=== PATIENT | male | born 1965 | race Caucasian/White ===

== ENCOUNTER 2017-02-12 12:40 | Emergency (ER) | payer SELFPAY ==
[~2017-02-12] VITALS: Ht 182.9 cm; Wt 76.9 kg
[2017-02-12 12:43] VITALS: BP 93/58; PULSE 90; TEMP 36.7; O2SAT 97; Ht 182.9 cm; Wt 76.9 kg
--- NOTE | 2017-02-12 19:25 | EMERGENCY ROOM VISIT NOTE ---
History Report prepared by Tam: Checo Herndon Under the Supervision of: Dr. Shan Garcia D.O. First contact with patient: 13:03 Chief Complaint: ANXIETY Stated Complaint: ANXIETY,CAN'T SLEEP,CAN'T FOCUS History of Present Illness The patient is a 51 year old male who presents to the Emergency Room with complaints of persistent anxiety for the past while. The patient states that he has a history of anxiety for the past ten years. He states that some things have come up in his life recently leading to this anxiety. The patient states that he takes 1mg alprazolam three times per day. The patient denies any suicidal ideation, homicidal ideation, and hallucinations. Pt denies headache, change in vision, fevers, chest pain, shortness of breath, nausea, vomiting, diarrhea, pain with urination, and melena. He notes that he has one prescription for benzodiazepines filled in [place] but since then has had none recently. He admits that he has trouble getting these due to being out of state and way from his PCP in [place]. Source of History: patient Onset: the past while Position: other (global) Quality: other (anxiety) Timing: other (persistent) Review of Systems See HPI for pertinent positives & negatives. A total of 10 systems reviewed and were otherwise negative. Past Medical & Surgical Medical Problems: (1) Anxiety Social History Smoking Status: Current Every Day Smoker Marital Status: single Housing Status: lives alone Occupation Status: employed Current/Historical Medications Unable to Obtain Active Prescriptions or Reported Meds Physical Exam Vital Signs Date Time Temp Pulse Resp B/P (MAP) Pulse Ox O2 Delivery O2 Flow Rate FiO2 02/12/17 12:43 36.7 90 18 93/58 97 Room Air Physical Exam GENERAL: Sitting up in bed, alert, well appearing, well nourished, no distress, non-toxic EYE EXAM: normal conjunctiva. OROPHARYNX: no exudate, no erythema, lips, buccal mucosa, and tongue normal and mucous membranes are moist NECK: supple, no nuchal rigidity, no adenopathy, non-tender LUNGS: Clear to auscultation. Normal chest wall mechanics HEART: no murmurs, S1 normal and S2 normal ABDOMEN: abdomen soft, non-tender, normo-active bowel sounds, no masses, no rebound or guarding. BACK: Back is symmetrical on inspection and there is no deformity, no midline tenderness, no CVA tenderness. SKIN: no rashes and no bruising UPPER EXTREMITIES: upper extremities are grossly normal. LOWER EXTREMITIES: No pitting edema. NEURO EXAM: Normal sensorium, cranial nerves II-XII grossly intact, normal speech, no gross weakness of arms, no gross weakness of legs. Gross sensation intact. PSYCH: Denies suicidal and homicidal ideations. Denies auditory and visual hallucinations. Medical Decision & Procedures Laboratory Results ED Course ED COURSE: Vital signs were reviewed and showed hypotension The patients medical record was reviewed The above diagnostic studies were performed and reviewed. ED treatments and interventions as stated above. 1303: The patient was evaluated in room A8. A complete history and physical examination was performed. I discussed my findings with the patient and he understands the treatment plan. Based on the patients age, coexisting illnesses, exam, and lab findings the decision to treat as an outpatient was made. The patient remained stable while under my care. The patient appeared well at the time of discharge. Medical Decision Differential diagnosis: Etiologies such as mood disorder, infection, hypoglycemia, electrolyte abnormalities, cardiac sources, intracerebral event, toxicologic, neurologic, as well as others were entertained. Patient is a 51-year-old male who presents to ER for anxiety and denies all other complaints. He notes that he has one Ativan prescription but none other. His exam is completely benign. [place] he had multiple prescriptions for benzodiazepines filled within the past month. These prescriptions are for coming from 5 different providers. They are 90 tabs on multiple prescriptions. He is clearly abusing this medication. When confronted he did admit that he has multiple prescriptions and has been using them/abusing them. I gave him and offered information in regards to rehabilitation. He was discharged follow-up with PCP. I instructed him not to drive while taking these medications. He should also not stopped abruptly as he will have seizures. He understood all this and was discharged to follow-up with PCP. Discussed with Pt concerning signs and symptoms to watch out for. Pt was instructed to follow up with their PCP and discussed with the patient their option to return to the ED at anytime for persistent or worsening symptoms. The appropriate anticipatory guidance and out-patient management, including indications for return to the emergency department, were explained at length to the patient and understood. [place] Drug Monitoring [place] Search Results: patient reviewed within database, see additional documentation Drug Monitoring Findings: The patient has 90 of alprazolam filled on the , 20 on the , 90 on the , 20 on the 18th, 90 on the , and 90 on the . Medication Reconcilliation Current Medication List: was personally reviewed by me Blood Pressure Screening Patient's blood pressure: Low blood pressure Impression Primary Impression: Drug-seeking behavior Additional Impression: Benzodiazepine abuse Scribe Attestation The scribe's documentation has been prepared under my direction and personally reviewed by me in its entirety. I confirm that the note above accurately reflects all work, treatment, procedures, and medical decision making performed by me. Departure Information Dispostion Home / Self-Care Prescriptions Unable to Obtain Active Prescriptions or Reported Meds Referrals No Doctor, Assigned (PCP) Forms HOME CARE DOCUMENTATION FORM, IMPORTANT VISIT INFORMATION Patient Instructions Addiction Drug Abuse Tx, Anxiety Body Response, My [facility] Additional Instructions Please follow up with your primary care doctor with in the next 24 hours. Any worsening of your symptoms, please return to the ED immediately. This includes any thoughts of self-harm or harming anyone else or any other concerning signs or symptoms from your standpoint. You should not be driving all taking benzodiazepines. By your prescription history you are clearly abusing this medication. He should follow-up with possible treatment or rehabilitation. If you stop taking this medication abruptly you can have seizures. He will need to be titrated off. Please follow up with your primary care doctor in regards to this. Problem Qualifiers
== END 2017-02-12 13:31 | disposition home or self-care (01) ==
LOC: C.EDB 12:43 → C.EDA 13:31
DX: Z76.5 Malingerer [conscious simulation] (principal); F13.20 Sedative, hypnotic or anxiolytic dependence, uncomplicated; F41.9 Anxiety disorder, unspecified; F17.200 Nicotine dependence, unspecified, uncomplicated; R03.1 Nonspecific low blood-pressure reading

== ENCOUNTER → 2017-03-20 | Outpatient (CLI) | payer OTHER | END | disposition home or self-care (01) | LOC: C.LAB 07:17 | DX: Z02.83 Encounter for blood-alcohol and blood-drug test (principal) ==

== ENCOUNTER 2017-04-09 16:40 | Inpatient (IN) | payer OTHER ==
[~2017-04-09] VITALS: Ht 182.9 cm; Wt 73.4 kg
[2017-04-09] MEDS ORDERED: MULTI-VITAMIN INFUSION INJ 10 ML, THIAMINE HCL INJ 100 MG, FoLIC ACID INJ 1 MG in SODIU... IV ONE (17:30)
[2017-04-09] MEDS ORDERED: ALPR-385 PO (18:04)
[2017-04-09] MEDS ORDERED: BUPR8SUB19 SL (18:04)
[2017-04-09 18:22] LABS: BASO % 0.2 %; BASO ABS # 0.02 K/uL (0-0.2); EOS % 0.9 %; EOS ABS # 0.08 K/uL (0-0.5); HEMATOCRIT 41.1 % (42-52); HEMOGLOBIN 13.9 g/dL (14.0-18.0); IG# 0.05 K/uL (0.00-0.02); LYMPH % 25.6 %; LYMPH ABS # 2.31 K/uL (1.2-3.4); MEAN CELL VOLUME 92.8 fL (80-100); MEAN CORPUSCULAR HEMOGLOBIN 31.4 pg (25-34); MEAN CORPUSCULAR HGB CONC 33.8 g/dl (32-36); MEAN PLATELET VOLUME 9.8 fL (7.4-10.4); MONO % 7.3 %; MONO ABS # 0.66 K/uL (0.11-0.59); NEUT % 65.4 %; NEUT ABS # 5.91 K/uL (1.4-6.5); PLATELET COUNT 118 K/uL (130-400); RED CELL DISTRIBUTION WIDTH CV 17.9 % (11.5-14.5); RED CELL DISTRIBUTION WIDTH SD 58.8 fL (36.4-46.3); WHITE BLOOD COUNT 9.03 K/uL (4.8-10.8)
--- NOTE | 2017-04-09 18:33 | EMERGENCY ROOM VISIT NOTE ---
History Report prepared by Tam: Alyson Katz Under the Supervision of: Dr. Roula Harmon M.D. First contact with patient: 17:09 Chief Complaint: DETOX REQUEST Stated Complaint: ALCOHOL DETOX NEEDED History of Present Illness The patient is a 51 year old male who presents to the Emergency Room for detox from alcohol. The patient is minimally verbal currently however his fiance states that he is an alcoholic and was sober for 10 years up until 4 months ago. He states that he has mainly been drinking beer and does not know how many he has drank today. He reports he has not taken any other drugs other than his prescribed medication. He reports taking 1 mg of Xanax an hour before coming in. The patient states that he has been having suicidal thoughts, but has no plan. He states that he came to the ED to go through detox. He reports that he wants to go to rehab. The patient denies vomiting, diarrhea, and abdominal pain. The patient denies a history of Hepatitis. The patient's girlfriend notes a history of an enlarged prostate and liver problems. She notes that he has fallen many times recently. Of note in review of the patient's medical record, he has had a visit last month requesting a Xanax prescription. He had multiple prescriptions from multiple sources prescribed and filled. Source of History: patient, spouse/significant other Onset: this evening Position: other (global) Quality: other (detox) Timing: other (episode) Associated Symptoms: No vomiting, No abdominal pain, No diarrhea Note: The patient complains of suicidal thoughts. The patient denies a suicidal plan. Review of Systems See HPI for pertinent positives & negatives. A total of 10 systems reviewed and were otherwise negative. Past Medical & Surgical Medical Problems: (1) Anxiety (2) History of alcohol abuse Family History No pertinent family history Social History Smoking Status: Current Every Day Smoker Alcohol Use: heavy Marital Status: in relationship Housing Status: lives with significant other Occupation Status: employed Current/Historical Medications Scheduled Alprazolam (Xanax), 1 MG PO TID Buprenorphine Hcl (Subutex), 1 TAB SL TID Allergies Coded Allergies: No Known Allergies (Unverified , 04/09/17) Physical Exam Vital Signs Date Time Temp Pulse Resp B/P (MAP) Pulse Ox O2 Delivery O2 Flow Rate FiO2 04/09/17 18:13 95 Nasal Cannula 2.0 04/09/17 18:12 95 Nasal Cannula 2.0 04/09/17 18:06 71 04/09/17 18:05 71 16 104/65 95 Room Air 04/09/17 18:00 88 Room Air 04/09/17 17:11 36.0 81 15 103/72 95 Room Air Physical Exam Vital signs reviewed. General: Intoxicated, somewhat sedate, but answers questions with fianc's help , in no significant distress. HEENT: No scleral icterus, PERRLA, neck supple. Atraumatic. Cardiovascular: Regular rate and rhythm, no extra sounds. Pulmonary: Clear to auscultation bilaterally, normal work of breathing. Abdomen: Soft, nontender, nondistended, positive bowel sounds. Musculoskeletal: Atraumatic, no peripheral edema. Neurologic: Patient awake alert and oriented x 3, full strength in all 4 extremities. Cranial nerves 2 through 12 grossly intact. Skin: Warm, dry, no rash Psych: Positive passive SI with no plan. No HI. Medical Decision & Procedures Laboratory Results 04/09/17 17:59 Red Blood Count 4.43, Mean Corpuscular Volume 92.8, Mean Corpuscular Hemoglobin 31.4, Mean Corpuscular Hemoglobin Concent 33.8, Mean Platelet Volume 9.8, Neutrophils (%) (Auto) 65.4, Lymphocytes (%) (Auto) 25.6, Monocytes (%) (Auto) 7.3, Eosinophils (%) (Auto) 0.9, Basophils (%) (Auto) 0.2, Neutrophils # (Auto) 5.91, Lymphocytes # (Auto) 2.31, Monocytes # (Auto) 0.66, Eosinophils # (Auto) 0.08, Basophils # (Auto) 0.02 04/09/17 17:59 Test 04/09/17 17:30 04/09/17 17:59 Urine Color YELLOW Urine Appearance CLEAR (CLEAR) Urine pH 6.5 (4.5-7.5) Urine Specific [place] 1.008 (1.000-1.030) Urine Protein NEG (NEG) Urine Glucose (UA) NEG (NEG) Urine Ketones NEG (NEG) Urine Occult Blood NEG (NEG) Urine Nitrite NEG (NEG) Urine Bilirubin NEG (NEG) Urine Urobilinogen NEG (NEG) Urine Leukocyte Esterase NEG (NEG) Urine Opiates Screen NEG (NEG) Urine Methadone, Qualitative NEG (NEG) Urine Barbiturates NEG (NEG) Urine Phencyclidine (PCP) Level NEG (NEG) Ur Amphetamine/Methamphetamine NEG (NEG) MDMA (Ecstasy) Screen NEG (NEG) Urine Benzodiazepines Screen POS (NEG) Urine Cocaine Metabolite NEG (NEG) Urine Marijuana (THC) NEG (NEG) White Blood Count 9.03 K/uL (4.8-10.8) Red Blood Count 4.43 M/uL (4.7-6.1) Hemoglobin 13.9 g/dL (14.0-18.0) Hematocrit 41.1 % (42-52) Mean Corpuscular Volume 92.8 fL (80-100) Mean Corpuscular Hemoglobin 31.4 pg (25-34) Mean Corpuscular Hemoglobin Concent 33.8 g/dl (32-36) Platelet Count 118 K/uL (130-400) Mean Platelet Volume 9.8 fL (7.4-10.4) Neutrophils (%) (Auto) 65.4 % Lymphocytes (%) (Auto) 25.6 % Monocytes (%) (Auto) 7.3 % Eosinophils (%) (Auto) 0.9 % Basophils (%) (Auto) 0.2 % Neutrophils # (Auto) 5.91 K/uL (1.4-6.5) Lymphocytes # (Auto) 2.31 K/uL (1.2-3.4) Monocytes # (Auto) 0.66 K/uL (0.11-0.59) Eosinophils # (Auto) 0.08 K/uL (0-0.5) Basophils # (Auto) 0.02 K/uL (0-0.2) RDW Standard Deviation 58.8 fL (36.4-46.3) RDW Coefficient of Variation 17.9 % (11.5-14.5) Immature Granulocyte % (Auto) 0.6 % Immature Granulocyte # (Auto) 0.05 K/uL (0.00-0.02) Anion Gap 6.0 mmol/L (3-11) Estimated GFR () 133.3 Estimated GFR (Non- 115.0 BUN/Creatinine Ratio 9.0 (10-20) Calcium Level 7.9 mg/dl (8.5-10.1) Magnesium Level 2.4 mg/dl (1.8-2.4) Total Bilirubin 0.5 mg/dl (0.2-1) Direct Bilirubin 0.1 mg/dl (0-0.2) Aspartate Amino Transf (AST/SGOT) 84 U/L (15-37) Alanine Aminotransferase (ALT/SGPT) 74 U/L (12-78) Alkaline Phosphatase 120 U/L (45-117) Total Protein 7.1 gm/dl (6.4-8.2) Albumin 3.3 gm/dl (3.4-5.0) Salicylates Level 4.0 mg/dl (2.8-20) Acetaminophen Level < 2 ug/ml (10-30) Ethyl Alcohol mg/dL 197.0 mg/dl (0-3) Laboratory results per my review. Medications Administered Medications (Trade) Dose Ordered Sig/David Route Start Time Stop Time Status Last Admin Dose Admin Multivitamins 10 ml/Thiamine HCl 100 mg/Folic Acid 1 mg/Sodium Chloride 1,011.2 ml @ 500 mls/ hr Q2H2M ONCE IV 04/09/17 17:30 04/09/17 19:31 DC 04/09/17 18:04 500 MLS/HR ED Course 1714: Past medical records reviewed. The patient was evaluated in room A6. A complete history and physical examination was performed. 1730: Ordered Multivitamins 10 ml/ Thiamine HCl 100 mg/ Folic Acid 1 mg/ Sodium chloride 1011.2 ml @ 500 mls/hr IV. 2030: The patient was signed out to Dr. Saeed Wen at change of shift. Medical Decision Differential diagnosis: Etiologies such as mood disorder, infection, hypoglycemia, electrolyte abnormalities, cardiac sources, intracerebral event, toxicologic, neurologic, as well as others were entertained. This patient was evaluated and appeared to be intoxicated been in no distress. Patient is able to answer some simple questions however his fiance fills in the details. The patient apparently has been drinking warm. Over the last 4 months. He has a history of benzodiazepine abuse according to previous records. Patient's blood alcohol level is 197 today. He was given a banana bag and observed on the engine monitor. When he is clinically sober, he will be evaluated by mental health family caseworker for possible drug and alcohol rehabilitation. He has expressed that this is his desire. The case has been signed out to Dr. Wen at the change of shift pending mental health evaluation. Medication Reconcilliation Current Medication List: was personally reviewed by me Blood Pressure Screening Patient's blood pressure: Normal blood pressure Blood pressure disposition: Did not require urgent referral Impression Primary Impression: Alcohol dependence Additional Impression: Benzodiazepine dependence Scribe Attestation The scribe's documentation has been prepared under my direction and personally reviewed by me in its entirety. I confirm that the note above accurately reflects all work, treatment, procedures, and medical decision making performed by me. Departure Information Dispostion Still a Patient Referrals No Doctor, Assigned (PCP) Patient Instructions My [facility] Problem Qualifiers
[2017-04-09 18:39] LABS: ALBUMIN 3.3 gm/dl (3.4-5.0); ALT/SGPT 74 U/L (12-78); AST/SGOT 84 U/L (15-37); BLOOD UREA NITROGEN 6 mg/dl (7-18); CALCIUM 7.9 mg/dl (8.5-10.1); CARBON DIOXIDE 33 mmol/L (21-32); CREATININE 0.64 mg/dl (0.60-1.40); GLUCOSE 96 mg/dl (70-99); POTASSIUM 3.1 mmol/L (3.5-5.1); SODIUM 135 mmol/L (136-145)
[2017-04-09 18:41] LABS: ALKALINE PHOSPHATASE 120 U/L (45-117); TOTAL PROTEIN 7.1 gm/dl (6.4-8.2)
--- NOTE | 2017-04-09 20:49 | EMERGENCY ROOM VISIT NOTE ---
ED Visit Note First contact with patient: 20:47 The patient was taken in signout from Dr. Roula Harmon at the change of shift. Please see that note for details. The patient was pending clearance of alcohol intoxication and mental filomena evaluation. After some time it was felt that the patient's alcohol level should be at a reasonable level but he was still very sleepy and could not complete a thorough mental health evaluation by 3 S. Psychiatry raise concerns about his potential for withdrawal and felt it was most appropriate for him to be medically managed. The patient does note a history of alcohol withdrawal. He was reassessed. His vital signs are relatively stable. He was still very sleepy. He noted increasing malaise but had no other specific complaints. Due to significant concern about withdrawal consultation was made with internal medicine. The patient was evaluated in the Emergency Room for further management.
[2017-04-10] VITALS (10 sets, daily range): BP systolic 105–135; BP diastolic 66–87; PULSE 74–89; TEMP 36.4–37; O2SAT 90–96; Ht 182.9 cm; Wt 73.4 kg
[2017-04-10] MEDS ORDERED: ONDANSETRON 8MG OD TAB PO PRN (01:15)
[2017-04-10] MEDS ORDERED: GABAPENTIN 800 MG TAB PO STA (02:16)
[2017-04-10] MEDS: NSS + 20MEQ KCL 1000ML 1,000 ML IV SCH ×3 (02:25→17:40)
[2017-04-10] MEDS ORDERED: PATIENT'S HEIGHT AND/OR WEIGHT NEEDED SCH (02:30)
[2017-04-10] MEDS: LORAZEPAM 1MG IV PHA DISPENSED IV PRN ×2 (02:56→11:30)
--- NOTE | 2017-04-10 04:54 | History and Physical ---
History & Physical Date & Time of Service: Apr 10, 2017 at 04:35 Chief Complaint: Alcohol Dependence,Benzodiazepine Dependence Primary Care Physician: No Doctor, Assigned History of Present Illness Source: patient, hospital records The patient is a 51-year-old male who presents emergency department due to concerns regarding alcohol withdrawal. He has been an alcoholic, was sober for 10 years, up until 4 months ago. He reports drinking up to 20 beers a day, and takes Xanax 1 mg 3 times daily. The patient did reports to ED personnel that he was having suicidal thoughts, but did not have any plans. He expresses an interest in going to rehabilitation. His past medical history also includes hepatitis, BPH and liver problems per his girlfriend. She reports that he is fallen many times recently. His record review notes multiple prescriptions from multiple sources for Xanax. Family History No pertinent family history Social History Smoking Status: Current Every Day Smoker Smokeless Tobacco Use: No Alcohol Use: heavy Drug Use: none Marital Status: in relationship Occupational Status: employed Immunizations History of Influenza Vaccine: Unknown History of Tetanus Vaccine?: Unknown History of Pneumococcal: Unknown History of Hepatitis B Vaccine: Unknown Multi-Drug Resistant Organisms History of MDRO: No Allergies Coded Allergies: No Known Allergies (Unverified , 04/09/17) Home Medications Scheduled Alprazolam (Xanax), 1 MG PO TID Buprenorphine Hcl (Subutex), 1 TAB SL TID Review of Systems The patient denies chest pain, palpitations, shortness of breath, dyspnea on exertion, cough, lower extremity swelling, sore throat, fevers, chills, sweats, vomiting, diarrhea , constipation, abdominal pain, pelvic pain, blood in urine or stool, dysuria, urinary frequency or urgency, loss of consciousness, rash, abnormal bruising or bleeding, imbalance, focal weakness, numbness or tingling in arms or legs, generalized arthralgias or myalgias, back or neck pain, or night sweats. The review of systems is otherwise negative other than for that already noted above, and at least 10 systems have been reviewed. Physical Exam Vital Signs Date Time Temp Pulse Resp B/P (MAP) Pulse Ox O2 Delivery O2 Flow Rate FiO2 04/10/17 02:10 36.9 77 20 135/87 93 Room Air 04/10/17 01:50 36.3 68 18 116/82 93 Room Air 04/10/17 01:09 75 18 113/73 92 Room Air 04/09/17 22:48 73 18 106/67 97 Nasal Cannula 04/09/17 22:35 76 13 82/51 97 Nasal Cannula 2.0 04/09/17 22:16 80 04/09/17 22:05 79 13 96 Nasal Cannula 2.0 04/09/17 22:00 122/69 04/09/17 21:59 79 19 96 Nasal Cannula 2.0 04/09/17 21:29 78 16 97 Nasal Cannula 2.0 04/09/17 21:00 98/59 04/09/17 20:59 70 15 97 Nasal Cannula 2.0 04/09/17 20:54 105/56 04/09/17 20:30 69 15 98 Nasal Cannula 2.0 04/09/17 20:00 66 18 99 Nasal Cannula 2.0 04/09/17 19:30 69 16 99 Nasal Cannula 2.0 04/09/17 19:00 69 13 98 Nasal Cannula 2.0 04/09/17 18:13 95 Nasal Cannula 2.0 04/09/17 18:12 95 Nasal Cannula 2.0 04/09/17 18:06 71 04/09/17 18:05 71 16 104/65 95 Room Air 04/09/17 18:00 88 Room Air 04/09/17 17:11 36.0 81 15 103/72 95 Room Air The patient is at the time of my examination awake, alert and oriented 3, disheveled-appearing, normocephalic and atraumatic, lying in bed and in no acute distress. HEENT--PERRL, EOMI, mucous membranes and oropharynx dry. Neck--supple. No JVD. No bruits. Thyroid normal, trachea midline, no adenopathy. Heart--normal S1 and S2. No murmurs, rubs or gallops. Lungs--few scattered coarse rhonchi, no respiratory distress, no accessory muscle use. Abdomen--normal bowel sounds and soft. Nontender. Nondistended, no hernias or masses. Mildly enlarged liver Extremities--no cyanosis or clubbing. No edema. There are good distal pulses b/ l. Dermatologic--normal skin turgor, normal color, no abnormal lymph nodes, no rash. Neurologic--cranial nerves II through XII grossly intact. Rheumatologic--normal range of motion. Psychiatric--flat affect. Diagnostics Laboratory Results Results Past 24 Hours Test 04/09/17 17:30 04/09/17 17:59 Range/Units Urine Color YELLOW Urine Appearance CLEAR CLEAR Urine pH 6.5 4.5-7.5 Urine Specific [place] 1.008 1.000-1.030 Urine Protein NEG NEG Urine Glucose (UA) NEG NEG Urine Ketones NEG NEG Urine Occult Blood NEG NEG Urine Nitrite NEG NEG Urine Bilirubin NEG NEG Urine Urobilinogen NEG NEG Urine Leukocyte Esterase NEG NEG Urine Opiates Screen NEG NEG Urine Methadone, Qualitative NEG NEG Urine Barbiturates NEG NEG Urine Phencyclidine (PCP) Level NEG NEG Ur Amphetamine/Methamphetamine NEG NEG MDMA (Ecstasy) Screen NEG NEG Urine Benzodiazepines Screen POS NEG Urine Cocaine Metabolite NEG NEG Urine Marijuana (THC) NEG NEG White Blood Count 9.03 4.8-10.8 K/uL Red Blood Count 4.43 4.7-6.1 M/uL Hemoglobin 13.9 14.0-18.0 g/dL Hematocrit 41.1 42-52 % Mean Corpuscular Volume 92.8 80-100 fL Mean Corpuscular Hemoglobin 31.4 25-34 pg Mean Corpuscular Hemoglobin Concent 33.8 32-36 g/dl Platelet Count 118 130-400 K/uL Mean Platelet Volume 9.8 7.4-10.4 fL Neutrophils (%) (Auto) 65.4 % Lymphocytes (%) (Auto) 25.6 % Monocytes (%) (Auto) 7.3 % Eosinophils (%) (Auto) 0.9 % Basophils (%) (Auto) 0.2 % Neutrophils # (Auto) 5.91 1.4-6.5 K/uL Lymphocytes # (Auto) 2.31 1.2-3.4 K/uL Monocytes # (Auto) 0.66 0.11-0.59 K/uL Eosinophils # (Auto) 0.08 0-0.5 K/uL Basophils # (Auto) 0.02 0-0.2 K/uL RDW Standard Deviation 58.8 36.4-46.3 fL RDW Coefficient of Variation 17.9 11.5-14.5 % Immature Granulocyte % (Auto) 0.6 % Immature Granulocyte # (Auto) 0.05 0.00-0.02 K/uL Sodium Level 135 136-145 mmol/L Potassium Level 3.1 3.5-5.1 mmol/L Chloride Level 96 98-107 mmol/L Carbon Dioxide Level 33 21-32 mmol/L Anion Gap 6.0 3-11 mmol/L Blood Urea Nitrogen 6 7-18 mg/dl Creatinine 0.64 0.60-1.40 mg/dl Estimated GFR () 133.3 Estimated GFR (Non- 115.0 BUN/Creatinine Ratio 9.0 10-20 Random Glucose 96 70-99 mg/dl Calcium Level 7.9 8.5-10.1 mg/dl Magnesium Level 2.4 1.8-2.4 mg/dl Total Bilirubin 0.5 0.2-1 mg/dl Direct Bilirubin 0.1 0-0.2 mg/dl Aspartate Amino Transf (AST/SGOT) 84 15-37 U/L Alanine Aminotransferase (ALT/SGPT) 74 12-78 U/L Alkaline Phosphatase 120 45-117 U/L Total Protein 7.1 6.4-8.2 gm/dl Albumin 3.3 3.4-5.0 gm/dl Salicylates Level 4.0 2.8-20 mg/dl Acetaminophen Level < 2 10-30 ug/ml Ethyl Alcohol mg/dL 197.0 0-3 mg/dl EKG EKG shows normal sinus rhythm at 73 bpm, there are no acute ST-T changes. Impression Assessment and Plan Alcohol dependency/benzodiazepine dependency/concerns regarding withdrawal-- Admit to the telemetry unit for monitoring. AWSS protocol with gabapentin regular dosing and IV Ativan when necessary. Continue Xanax 1 mg by mouth 3 times a day. Order an abdominal/pelvic ultrasound, and hepatitis panel Order a psychiatry consult regarding suicidal ideation without a plan. Consult social security assessor Hypokalemia/dehydration-- Banana bag every morning, followed by NSS + KCl 20 mEq at 125 ML's per hour Serial CBC with differential, CMP and magnesium level Abnormal liver enzymes-- Hepatitis panel and ultrasound as noted above Thrombocytopenia-- Likely associated with chronic alcohol use Level of Care Telemetry Advanced Directives Existing Advance Directive: No Existing Living Will: No Existing Power of Steam Engineer: No Resuscitation Status FULL RESUSCITATION VTE Prophylaxis VTE Risk Assessment Done? Y/N: Yes Risk Level: Moderate Given or contraindicated: SCD's
[2017-04-10] MEDS: NICOTINE 14 MG/24 HR TDSY TD SCH (07:51)
--- NOTE | 2017-04-10 08:39 | DIAGNOSTIC IMAGING REPORT ---
ULTRASOUND ABDOMEN COMPLETE CLINICAL HISTORY: Elevated hepatic transaminases. COMPARISON STUDY: No priors. TECHNIQUE: Real-time, grayscale, and color flow sonography of the abdomen was performed. Images are reviewed in the transverse and longitudinal planes. FINDINGS: Liver: The liver is enlarged and demonstrates heterogeneously increased echotexture consistent with severe hepatic steatosis. Note that this degrades acoustic penetration of the liver. There is no intrahepatic biliary ductal dilatation. The main portal vein is patent. Gallbladder: The gallbladder is normal in appearance. No gallstones are identified. There is no gallbladder wall thickening or pericholecystic fluid. A sonographic Holt's sign is reportedly absent. The common bile duct measures up to 0.5 cm in diameter. Pancreas: Visualized portions of the pancreatic head and body are normal in appearance. Spleen: The spleen is normal in size and echotexture, measuring 9.9 cm in length. Kidneys: The kidneys are normal in size and echotexture. There is no hydronephrosis. The right kidney measures 12.7 cm in length and the left kidney measures 13.4 cm in length. No shadowing calculi are identified. Abdominal vasculature: Visualized portions of the abdominal aorta are normal in caliber. Ascites: None. IMPRESSION: 1. Hepatomegaly and severe hepatic steatosis. 2. No acute sonographic abnormality is identified. No gallstones are seen Electronically signed by: Sylvester Adhikari M.D. 04/10/2017 8:38 AM Dictated Date/Time: 04/10/2017 8:36 AM
[2017-04-10] MEDS: ALPRAZOLAM 0.5 MG TAB PO SCH ×2 (08:47→14:08)
[2017-04-10] MEDS: HEPARIN SOD 5000 UNIT/0.5 ML CARP SQ SCH ×2 (08:50→20:52)
[2017-04-10 09:00] LABS: HEP C IGG 13 YRS+OLDER_RFLX NEG (NEG)
[2017-04-10 09:13] LABS: HEMATOCRIT 39.5 % (42-52); MEAN CELL VOLUME 93.8 fL (80-100); MEAN CORPUSCULAR HEMOGLOBIN 30.9 pg (25-34); MEAN CORPUSCULAR HGB CONC 32.9 g/dl (32-36); MEAN PLATELET VOLUME 10.7 fL (7.4-10.4); PLATELET COUNT 105 K/uL (130-400); RED CELL DISTRIBUTION WIDTH CV 18.1 % (11.5-14.5); WHITE BLOOD COUNT 9.22 K/uL (4.8-10.8)
[2017-04-10 09:29] LABS: ALBUMIN 2.9 gm/dl (3.4-5.0); CALCIUM 7.8 mg/dl (8.5-10.1); CREATININE 0.51 mg/dl (0.60-1.40)
[2017-04-10] MEDS: MULTI-VITAMIN INFUSION INJ 10 ML, THIAMINE HCL INJ 100 MG, FoLIC ACID INJ 1 MG in SODIU... IV SCH (09:30)
[2017-04-10] MEDS: GABAPENTIN 400MG Q6H DOSE PO SCH ×2 (12:43→17:41)
[2017-04-10] MEDS ORDERED: BUPRENORPHINE/NALOXONE 8/2 MG TAB PO SCH (14:00)
[2017-04-10] MEDS ORDERED: CHLORDIAZEPOXIDE 25 MG CAP PO SCH (14:15)
[2017-04-10] MEDS ORDERED: TAMSULOSIN HCL 0.4 MG CAP PO ONE (14:30)
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
[2017-04-10] MEDS: CHLORDIAZEPOXIDE 50MG 1ST DOSE PO SCH ×3 (15:37→21:59)
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
[2017-04-10] MEDS: BUPRENORPHINE/NALOXONE 8/2 MG TAB PO SCH (20:49)
[2017-04-10] MEDS: TAMSULOSIN HCL 0.4 MG CAP PO SCH (21:20)
[2017-04-11] VITALS (9 sets, daily range): BP systolic 113–160; BP diastolic 76–91; PULSE 59–86; TEMP 36.4–36.8; O2SAT 91–96
[2017-04-11] MEDS: GABAPENTIN 400MG Q8H DOSE PO SCH ×3 (02:18→18:07)
[2017-04-11] MEDS: NSS + 20MEQ KCL 1000ML 1,000 ML IV SCH (03:39)
[2017-04-11] MEDS: CHLORDIAZEPOXIDE 50MG 1ST DOSE PO SCH ×2 (05:31→11:45)
[2017-04-11 06:57] LABS: BASO % 0.2 %; BASO ABS # 0.01 K/uL (0-0.2); EOS % 0.9 %; EOS ABS # 0.05 K/uL (0-0.5); HEMATOCRIT 35.4 % (42-52); HEMOGLOBIN 11.5 g/dL (14.0-18.0); IG# 0.02 K/uL (0.00-0.02); LYMPH % 40.1 %; LYMPH ABS # 2.35 K/uL (1.2-3.4); MEAN CELL VOLUME 95.2 fL (80-100); MEAN CORPUSCULAR HEMOGLOBIN 30.9 pg (25-34); MEAN CORPUSCULAR HGB CONC 32.5 g/dl (32-36); MEAN PLATELET VOLUME 9.6 fL (7.4-10.4); MONO % 8.2 %; MONO ABS # 0.48 K/uL (0.11-0.59); NEUT % 50.3 %; NEUT ABS # 2.95 K/uL (1.4-6.5); PLATELET COUNT 142 K/uL (130-400); RED CELL DISTRIBUTION WIDTH CV 18.5 % (11.5-14.5); RED CELL DISTRIBUTION WIDTH SD 63.6 fL (36.4-46.3); WHITE BLOOD COUNT 5.86 K/uL (4.8-10.8)
[2017-04-11 07:05] LABS: PTT PATIENT 27.5 SECONDS (21.0-31.0)
[2017-04-11 07:26] LABS: ALBUMIN 2.7 gm/dl (3.4-5.0); ALT/SGPT 49 U/L (12-78); AST/SGOT 35 U/L (15-37); BLOOD UREA NITROGEN 6 mg/dl (7-18); CALCIUM 7.7 mg/dl (8.5-10.1); CARBON DIOXIDE 28 mmol/L (21-32); GLUCOSE 99 mg/dl (70-99); POTASSIUM 3.8 mmol/L (3.5-5.1); SODIUM 139 mmol/L (136-145)
[2017-04-11 07:29] LABS: ALKALINE PHOSPHATASE 101 U/L (45-117); TOTAL PROTEIN 5.9 gm/dl (6.4-8.2)
[2017-04-11] MEDS: NICOTINE 14 MG/24 HR TDSY TD SCH (08:18)
[2017-04-11] MEDS: HEPARIN SOD 5000 UNIT/0.5 ML CARP SQ SCH ×2 (08:21→20:40)
[2017-04-11] MEDS: MULTI-VITAMIN INFUSION INJ 10 ML, THIAMINE HCL INJ 100 MG, FoLIC ACID INJ 1 MG in SODIU... IV SCH (08:40)
[2017-04-11] MEDS: LORAZEPAM 1MG IV PHA DISPENSED IV PRN ×3 (08:44→23:31)
[2017-04-11] MEDS: BUPRENORPHINE/NALOXONE 8/2 MG TAB PO SCH ×3 (08:44→20:37)
[2017-04-11] MEDS ORDERED: LORAZEPAM 2 MG/ML 1 ML VIAL IV ONE (10:30)
[2017-04-11 11:22] LABS: HEPATITIS A IGM TC 51813E NON-REACTIVE (NON-REACTIVE); HEPATITIS B CORE IGM TC51854R NON-REACTIVE (NON-REACTIVE)
[2017-04-11] MEDS ORDERED: DOCUSATE SODIUM/SENNA 50/8.6MG TAB PO ONE (11:32)
--- NOTE | 2017-04-11 11:47 | Hospitalist Progress Note ---
Hospitalist Progress Note Date of Service Apr 11, 2017. Subjective Pt evaluation today including: conversation w/ patient Had some visual hallucinations last night seeing snakes in his bed and weird looking people in the room, now resolved. No significant anxiety or tremors, BPs stable. Plans on finding inpt rehab for EtOH in [place] to be near his mother. No BM in several days. No abdominal pain today, no N/V, is antony po All Other Systems: Reviewed and Negative Objective Vital Signs Date Time Temp Pulse Resp B/P (MAP) Pulse Ox O2 Delivery O2 Flow Rate FiO2 04/11/17 11:32 36.8 60 20 144/87 (106) 93 04/11/17 08:00 92 Room Air 04/11/17 07:20 36.4 59 18 122/79 (93) 92 Room Air 04/11/17 04:00 Room Air 04/11/17 03:50 36.8 77 18 113/76 (88) 96 Room Air 04/11/17 00:00 Room Air 04/10/17 23:41 36.4 78 20 116/74 (88) 90 Room Air 04/10/17 21:50 36.5 84 18 129/79 (96) 93 Room Air 04/10/17 20:00 Room Air 04/10/17 18:00 36.4 88 18 125/75 (92) 94 Room Air 04/10/17 16:00 94 Room Air 04/10/17 15:10 36.8 74 16 105/66 (79) 90 Room Air 04/10/17 12:00 Room Air Physical Exam General Appearance: WD/WN, no apparent distress Eyes: normal inspection, sclerae normal ENT: hearing grossly normal Neck: trachea midline Respiratory/Chest: lungs clear, normal breath sounds, no respiratory distress, no accessory muscle use Cardiovascular: regular rate, rhythm, no edema, no murmur Abdomen: normal bowel sounds, non tender, soft, no organomegaly Extremities: non-tender, no pedal edema, no calf tenderness Neurologic/Psychiatric: alert, normal mood/affect, oriented x 3 Skin: normal color, warm/dry, no rash Laboratory Results Last 24 Hours Test 04/11/17 06:37 White Blood Count 5.86 K/uL Red Blood Count 3.72 M/uL Hemoglobin 11.5 g/dL Hematocrit 35.4 % Mean Corpuscular Volume 95.2 fL Mean Corpuscular Hemoglobin 30.9 pg Mean Corpuscular Hemoglobin Concent 32.5 g/dl Platelet Count 142 K/uL Mean Platelet Volume 9.6 fL Neutrophils (%) (Auto) 50.3 % Lymphocytes (%) (Auto) 40.1 % Monocytes (%) (Auto) 8.2 % Eosinophils (%) (Auto) 0.9 % Basophils (%) (Auto) 0.2 % Neutrophils # (Auto) 2.95 K/uL Lymphocytes # (Auto) 2.35 K/uL Monocytes # (Auto) 0.48 K/uL Eosinophils # (Auto) 0.05 K/uL Basophils # (Auto) 0.01 K/uL RDW Standard Deviation 63.6 fL RDW Coefficient of Variation 18.5 % Immature Granulocyte % (Auto) 0.3 % Immature Granulocyte # (Auto) 0.02 K/uL Prothrombin Time 10.1 SECONDS Prothromb Time International Ratio 1.0 Activated Partial Thromboplast Time 27.5 SECONDS Partial Thromboplastin Ratio 1.1 Sodium Level 139 mmol/L Potassium Level 3.8 mmol/L Chloride Level 107 mmol/L Carbon Dioxide Level 28 mmol/L Anion Gap 4.0 mmol/L Blood Urea Nitrogen 6 mg/dl Creatinine 0.50 mg/dl Est Creatinine Clear Calc Drug Dose 195.1 ml/min Estimated GFR () 147.5 Estimated GFR (Non- 127.3 BUN/Creatinine Ratio 12.3 Random Glucose 99 mg/dl Calcium Level 7.7 mg/dl Magnesium Level 2.2 mg/dl Total Bilirubin 0.3 mg/dl Direct Bilirubin < 0.1 mg/dl Aspartate Amino Transf (AST/SGOT) 35 U/L Alanine Aminotransferase (ALT/SGPT) 49 U/L Alkaline Phosphatase 101 U/L Total Protein 5.9 gm/dl Albumin 2.7 gm/dl Assessment and Plan Pt is a 51 yo male with EtOH and BZD abuse/dependence, h/o opioid dependence and abuse on Suboxone. Here for detox. Has a h/o alcohol withdrawal seizures. Polysubstance Abuse - ETOH/Benzodiazepine Abuse/Dependence with h/o DT, Opiate dependence on Suboxone: Here for detox, -high risk for seizure and DT. - Patient reports previous ETOH sobriety but has relapsed and is requesting inpatient ETOH detox-last drink 04/09, EtOH level 197 on admission - Was confronted by multiple people on his benzodiazepine use which he does minimalize--> PDMP review of website shows numerous 1 month supplies of Xanax were filled in the last 2 months alone, each for 90 pills at Xanax 1mg po tid, BLAIRE Yañez alerted the local pharmacy -dcd high dose home Xanax -continue Librium taper, on gabapentin protocol for EtOH withdrawal -Appreciate Psych consult-will need f/u after inaptient rehab to reassess for mental health disorder -continue Suboxone here but will NOT Rx after discharge - Continue AWSS protocol - continue Suboxone 8/2mg 1 tab po TID -continue - Banana bag daily , then switch to po thiamine, MVI, folate after 3 days Hypokalemia/Dehydration: Resolved - Was intoxicated upon arrival to ED -dc IVFs now except Banana bag BPH: stable, no current issues - continue Flomax 0.4 mg HS Abnormal Liver Enzymes/Thrombocytopenia: AST down to 35 today, Alp phos now normal, ALT remains normal, Liver US with severely fatty liver and hepatomegaly related to EtOH use. Plts now normal from 105--> 142 - should follow LFTs and f/u on fatty liver as outpt -follow CBC Constipation- start docusate/senna DVT Prophylaxis: Heparin BID Disposition: Inpatient ETOH rehab in 2-3 days after detox
[2017-04-11] MEDS ORDERED: LORAZEPAM INJ 2 MG in SYRINGE 1 ML IV SCH (13:45)
[2017-04-11] MEDS: CHLORDIAZEPOXIDE 50MG Q8H DOSE PO SCH (20:11)
[2017-04-11] MEDS: DOCUSATE SODIUM/SENNA 50/8.6MG TAB PO SCH (20:38)
[2017-04-11] MEDS: TAMSULOSIN HCL 0.4 MG CAP PO SCH (20:38)
[2017-04-12] VITALS (10 sets, daily range): BP systolic 122–172; BP diastolic 76–96; PULSE 60–83; TEMP 36.5–36.8; O2SAT 91–96
[2017-04-12] MEDS: GABAPENTIN 400MG Q12H DOSE PO SCH ×2 (05:31→18:07)
[2017-04-12] MEDS: CHLORDIAZEPOXIDE 50MG Q8H DOSE PO SCH ×2 (05:31→13:52)
[2017-04-12] MEDS: LORAZEPAM 2 MG/ML 1 ML VIAL IV PRN (06:20)
[2017-04-12 06:42] LABS: BASO % 0.3 %; BASO ABS # 0.02 K/uL (0-0.2); EOS % 0.8 %; EOS ABS # 0.05 K/uL (0-0.5); HEMATOCRIT 37.7 % (42-52); HEMOGLOBIN 12.5 g/dL (14.0-18.0); IG# 0.02 K/uL (0.00-0.02); LYMPH % 36.2 %; LYMPH ABS # 2.18 K/uL (1.2-3.4); MEAN CELL VOLUME 95.2 fL (80-100); MEAN CORPUSCULAR HEMOGLOBIN 31.6 pg (25-34); MEAN CORPUSCULAR HGB CONC 33.2 g/dl (32-36); MEAN PLATELET VOLUME 9.4 fL (7.4-10.4); MONO % 8.1 %; MONO ABS # 0.49 K/uL (0.11-0.59); NEUT % 54.3 %; NEUT ABS # 3.27 K/uL (1.4-6.5); PLATELET COUNT 161 K/uL (130-400); RED CELL DISTRIBUTION WIDTH CV 18.3 % (11.5-14.5); RED CELL DISTRIBUTION WIDTH SD 62.9 fL (36.4-46.3); WHITE BLOOD COUNT 6.03 K/uL (4.8-10.8)
[2017-04-12 06:53] LABS: PTT PATIENT 27.4 SECONDS (21.0-31.0)
[2017-04-12 07:18] LABS: ALBUMIN 2.8 gm/dl (3.4-5.0); ALT/SGPT 47 U/L (12-78); BLOOD UREA NITROGEN 7 mg/dl (7-18); CALCIUM 8.1 mg/dl (8.5-10.1); CARBON DIOXIDE 31 mmol/L (21-32); CREATININE 0.56 mg/dl (0.60-1.40); GLUCOSE 92 mg/dl (70-99); POTASSIUM 3.9 mmol/L (3.5-5.1); SODIUM 140 mmol/L (136-145)
[2017-04-12 07:20] LABS: ALKALINE PHOSPHATASE 91 U/L (45-117); AST/SGOT 30 U/L (15-37); TOTAL PROTEIN 6.2 gm/dl (6.4-8.2)
[2017-04-12] MEDS: DOCUSATE SODIUM/SENNA 50/8.6MG TAB PO SCH ×2 (08:04→21:38)
[2017-04-12] MEDS: NICOTINE 14 MG/24 HR TDSY TD SCH (08:04)
[2017-04-12] MEDS: LORAZEPAM 1MG IV PHA DISPENSED IV PRN ×2 (08:46→11:32)
[2017-04-12] MEDS: MULTI-VITAMIN INFUSION INJ 10 ML, THIAMINE HCL INJ 100 MG, FoLIC ACID INJ 1 MG in SODIU... IV SCH (08:46)
[2017-04-12] MEDS: BUPRENORPHINE/NALOXONE 8/2 MG TAB PO SCH ×3 (09:47→21:39)
[2017-04-12] MEDS: HEPARIN SOD 5000 UNIT/0.5 ML CARP SQ SCH ×2 (09:48→21:42)
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
[2017-04-12] MEDS ORDERED: LORAZEPAM 0.5 MG TAB PO ONE (16:30)
[2017-04-12] MEDS: TAMSULOSIN HCL 0.4 MG CAP PO SCH (21:38)
[2017-04-12] MEDS: CHLORDIAZEPOXIDE 25MG Q8H DOSE PO SCH (21:39)
[2017-04-13] VITALS: O2SAT 91
[2017-04-13] MEDS: LORAZEPAM 1MG IV PHA DISPENSED IV PRN (00:52)
[2017-04-13 04:00] VITALS: O2SAT 91
[2017-04-13 04:08] VITALS: BP 146/81; PULSE 70; TEMP 36.8; O2SAT 91
[2017-04-13] MEDS: CHLORDIAZEPOXIDE 25MG Q8H DOSE PO SCH (05:36)
[2017-04-13 07:01] LABS: HEMATOCRIT 38.9 % (42-52); HEMOGLOBIN 13.1 g/dL (14.0-18.0); MEAN CELL VOLUME 93.7 fL (80-100); MEAN CORPUSCULAR HEMOGLOBIN 31.6 pg (25-34); MEAN CORPUSCULAR HGB CONC 33.7 g/dl (32-36); MEAN PLATELET VOLUME 9.3 fL (7.4-10.4); PLATELET COUNT 188 K/uL (130-400); RED CELL DISTRIBUTION WIDTH CV 18.2 % (11.5-14.5); RED CELL DISTRIBUTION WIDTH SD 61.9 fL (36.4-46.3); WHITE BLOOD COUNT 6.49 K/uL (4.8-10.8)
[2017-04-13 07:33] VITALS: BP 152/81; PULSE 66; TEMP 37.1; O2SAT 94
[2017-04-13 08:00] VITALS: O2SAT 94
[2017-04-13] MEDS: MULTI-VITAMIN INFUSION INJ 10 ML, THIAMINE HCL INJ 100 MG, FoLIC ACID INJ 1 MG in SODIU... IV SCH (08:14)
[2017-04-13] MEDS: DOCUSATE SODIUM/SENNA 50/8.6MG TAB PO SCH (08:14)
[2017-04-13] MEDS: HEPARIN SOD 5000 UNIT/0.5 ML CARP SQ SCH (08:15)
[2017-04-13] MEDS: NICOTINE 14 MG/24 HR TDSY TD SCH (08:15)
[2017-04-13] MEDS: BUPRENORPHINE/NALOXONE 8/2 MG TAB PO SCH (08:45)
[2017-04-13] MEDS: LORAZEPAM 2 MG/ML 1 ML VIAL IV PRN (09:03)
[2017-04-13 10:00] VITALS: BP 152/81; PULSE 66; TEMP 37.1; O2SAT 94
[2017-04-13] MEDS ORDERED: FLM4 PO (10:17)
[2017-04-13] MEDS ORDERED: BUPR1SUB23 PO (10:17)
[2017-04-13] MEDS ORDERED: SENN8.6T7 PO (10:21)
[2017-04-13] MEDS ORDERED: FLV1 PO (10:21)
[2017-04-13] MEDS ORDERED: THM100 PO (10:21)
[2017-04-13] MEDS ORDERED: MULT-589 PO (10:21)
--- NOTE | 2017-04-13 10:31 | Discharge Instructions ---
Discharge Instructions Date of Service Apr 13, 2017. Admission Reason for Admission: Alcohol Dependence,Benzodiazepine Dependence Discharge Discharge Diagnosis / Problem: Alcohol and Benzodiazepine Dependence Discharge Goals Goal(s): Decrease discomfort, Improve function, Increase independence Activity Recommendations Activity Limitations: resume your previous activity Driving or Machine Use: Do NOT drive without a license. Do not drive under the influence of substances . Instructions / Follow-Up Instructions / Follow-Up Polysubstance Abuse - Alcohol and Benzodiazepines: - You were admitted to detox from alcohol. Given your history of seizures I would recommend that you have someone with you over the next couple of days and call 911 if seizures occur. - AVOID alcohol and would highly encourage rehab as a couple days of detox is not enough to get rid of this addiction. - It is EXTREMELY dangerous to mix alcohol with benzodiazepines like Xanax. Both substances can lead to many medication problems and can be deadly. Mixing the two increases this risk. - DO NOT DRIVE OR OPERATE MACHINES. ESPECIALLY WHILE TAKING THESE MEDICATIONS - You imaging of your liver shows fatty changes likely related to alcohol. If you do not stop drinking this can progress to cirrhosis with can lead to liver failure - Recommend to STOP Xanax as you have been using this in ways that it was not prescribed. - Medications like painkillers and Xanax are monitored. This program shows when prescriptions are written and filled. You have been using multiple pharmacies and filling prescriptions earlier than is allowed. Recommend to seek help in coming off this medication - Would highly recommend getting established with psychiatry and/or therapy to work on feelings of anxiety and substance use. - You will be prescribed multivitamins, thiamine, and folic acid - these are essential with a history of alcohol to prevent deficiency. You will also be prescribed a prescription for Senna this is a laxative you can take to help with constipation. Current Hospital Diet Patient's current hospital diet: Regular Diet Discharge Diet Recommended Diet: Regular Diet Pending Studies Studies pending at discharge: no Medical Emergencies . Who to Call and When: Medical Emergencies: If at any time you feel your situation is an emergency, please call 911 immediately. . Non-Emergent Contact Non-Emergency issues call your: Primary Care Provider Call Non-Emergent contact if: you have a fever, your pain is concerning you, you have any medication questions . . "Provider Documentation" section prepared by Brenda Yañez. . VTE Core Measure Inpt VTE Proph given/why not?: [place] Drug Monitoring Program Search Results: patient reviewed within database Drug Monitoring Findings: Multiple prescriptions for Xanax x 1 month supplies filled sooner than one month. Purchased at multiple pharmacies. Prescriptions are from an out of state in [place] with permanent address in [place], while residing in [place].
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
[2017-04-13] MEDS ORDERED: GABAPENTIN 400MG Q24H DOSE PO SCH (18:00)
[2017-04-14] MEDS ORDERED: CHLORDIAZEPOXIDE 10MG Q12H DOSE PO SCH
== END 2017-04-13 11:19 | disposition home or self-care (01) | DRG 897 ==
LOC: C.EDB 16:42 → C.MED 04-10 01:13 → ENRESERV 04-10 01:47
PROVIDERS: ADMIT Hospitalist; ATTEND Family Medicine
DX: F10.239 Alcohol dependence with withdrawal, unspecified (principal); F13.230 Sedative, hypnotic or anxiolytic dependence with withdrawal, uncomplicated; F11.11 Opioid abuse, in remission; F41.9 Anxiety disorder, unspecified; F17.200 Nicotine dependence, unspecified, uncomplicated; E87.6 Hypokalemia; E86.0 Dehydration; D69.6 Thrombocytopenia, unspecified; N40.0 Benign prostatic hyperplasia without lower urinary tract symptoms; K59.00 Constipation, unspecified; Z72.89 Other problems related to lifestyle